=== PATIENT | female | born 1985 | race Asian ===

== ENCOUNTER 2023-04-10 20:45 | Inpatient (IN) ==
[2023-04-10] MEDS ORDERED: OXYTOCIN 30 UNITS/500 ML BAG IV PRN ×2 (21:31→21:36)
[2023-04-10] MEDS ORDERED: LIDOCAINE 1% LOCAL 20 ML VIAL INFIL PRN (21:31)
--- NOTE | 2023-04-10 21:54 | History & Physical Report ---
Date of Service April 10, 2023 Assessment & Plan (1) Elderly multigravida: Plan: Patient is a 37-year-old G2, P1 currently at 40 weeks 4 days gestational age with spontaneous rupture of membranes 1. Fetus: Category 1 tracing 2. Labor: Spontaneous rupture of membranes. Regular contractions we will continue to monitor for labor. 3. GBS: Negative 4. Vitals within normal limits (2) SROM (spontaneous rupture of membranes): History of Present Illness Primary Care Provider: NO PCP 37-year-old G2, P1 currently at 40 weeks 4 days gestational age presents with spontaneous rupture of membranes. Reporting contractions every 5 to 6 minutes. Good movement noted. complicated by advanced maternal age OB Labs: Blood Type O Positive 10/01/22 Antibody Screen NEGATIVE 10/01/22 Hemoglobin 10.5 g/dl (12.0-16.0) L 01/23/23 Hematocrit 30.8 % (37.0-47.0) L 01/23/23 Mean Corpuscular Volume 88.9 fL (80.0-100.0) 10/01/22 Platelet Count 282 K/uL (130-400) 10/01/22 Rubella IgG Antibody Non Immune (Immune) L 10/01/22 Rapid Plasma Reagin Nonreactive (Nonreactive) 10/01/22 Hepatitis B Surface Antigen. NON-REACTIVE (NON-REACTIVE) 10/01/22 Hepatitis C Antibody (EIA) NON-REACTIVE (NON-REACTIVE) 10/01/22 HIV (1&2) Ag and Ab Confirmation NON-REACTIVE (NON-REACTIVE) 10/01/22 Glucose 1 Hour 50 gm Load 167 mg/dl (70-130) H 10/22/22 Maternal Serum Alpha Fetoprotein 70.8 ng/mL 10/22/22 OB Optional Labs: Chlamydia trachomatis RNA Not Detected (NotDetected) 10/01/22 Neisseria gonorrhoeae RNA Not Detected (NotDetected) 10/01/22 Alpha Fetoprotein Triple Screen SEE NOTE 10/22/22 Labs Reviewed: cf/sma-negative--mln cfdna-low risk--mln Allergies Allergy/AdvReac Type Severity Reaction Status Date / Time No Known Allergies Allergy Verified 04/10/23 10:03 Home Medications Medication Instructions Recorded Confirmed Type L.stella schwarz,estuardo,rhamn 1 cap PO DAILY 09/16/22 04/10/23 History [Culturelle Probiotic] prenat.vits,tegan,wqn-jtcm-gbtno 1 tab PO DAILY 09/16/22 04/10/23 History ferrous sulfate 325 mg (65 mg 325 mg PO Q OTHER DAY 04/01/23 04/10/23 History iron) tablet (iron) Patient History Medical History (Updated 04/10/23 @ 21:52 by Sandro Pablo MD) Varicella vaccination Surgical History History of vitrectomy Family History Grandmother (Maternal) Diabetes Denies family history of Ovarian cancer Breast cancer Colorectal cancer Social History (Updated 09/16/22 @ 13:25 by Sienna Dubon) Smoking Status: Never smoker Do You Dip or Chew Tobacco: No; Hx Alcohol Use: No Hx Substance Use: No Preferred Language: Vincentian Oyster Shipper Required: No Beliefs That Will Affect Care: None marital status: marital status details: Michelle Lo (39) [phone] Current Living Situation: Spouse Current Living Situation Comment: lives with spouse, son, no pets current occupational status: employed 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[employer] Other Information That Helps Us Care for You: No Feels Safe at Home: Yes Safety Concerns: Feels Safe At This Time Assistive Devices: None Physical Exam Genitourinary: normal external appearance Manual OB Exam: + cervical dilation 1 cm, + cervical effacement 50%, + station -2 and + amniotic fluid (Positive pooling, ferning and nitrazine) bloody OB Exam Monitor Tracing: + external FHT monitor used, + external uterine monitor used, + category I and + normal FHT variability Results & Data Vital Signs (Past 12 Hours) Vital Signs Temp Pulse Resp BP 04/10/23 20:57 77 115/64 04/10/23 20:58 37.0 C 18 Coding Level of Care Code None Diagnoses Elderly multigravida O09.529 SROM (spontaneous rupture of membranes)
[2023-04-10 22:25] LABS: Hematocrit (blood only) 35.9 % (37.0-47.0); Hemoglobin 12.4 g/dl (12.0-16.0); Mean Corpuscular Hemoglobin 32.3 pg (25.0-34.0); Mean Corpuscular Hgb Conc 34.5 g/dL (32.0-36.0); Mean Corpuscular Volume 93.5 fL (80.0-100.0); Mean Platelet Volume 10.6 fL (9.4-12.4); Platelet Count 186 K/uL (130-400); RDW Coefficient of Variation 12.9 % (11.5-14.5); RDW Standard Deviation 43.9 fL (36.4-46.3); Red Blood Count 3.84 M/uL (4.20-5.40); White Blood Count 8.02 K/ul (4.8-10.8)
[2023-04-11] MEDS: LACTATED RINGER'S 1,000 ML IV PRN ×2 (02:21→03:29)
[2023-04-11] MEDS ORDERED: ePHEDrine sulfate 50 MG/ML AMP ONE (02:23)
[2023-04-11] MEDS ORDERED: SODIUM CHLORIDE 0.9% PF INJ 10 ML VIAL ONE (02:23)
[2023-04-11] MEDS ORDERED: LIDOCAINE 2%/EPINEPHRINE 1:200,000 20 ML PF ONE (02:23)
[2023-04-11] MEDS ORDERED: BUPIVACAINE 0.25% PF 30 ML VIAL ONE (02:23)
[2023-04-11] MEDS ORDERED: fentaNYL citrate PF 100 MCG/2 ML VIAL ONE (02:23)
[2023-04-11] MEDS ORDERED: fentaNYL 2MCG/ML ROPIVACAINE 1.25MG/ML 100 ML BAG EPI ONE (02:24)
[2023-04-11] MEDS ORDERED: fentaNYL 2MCG/ML ROPIVACAINE 1.25MG/ML 100 ML BAG EPI PRN (02:47)
[2023-04-11] MEDS ORDERED: NALOXONE HCL 0.4 MG/1 ML VIAL/CARP IV PRN (02:47)
[2023-04-11] MEDS ORDERED: BUPIVACAINE 0.25% PF 30 ML VIAL EPI PRN (02:47)
[2023-04-11] MEDS ORDERED: NALOXONE HCL 1 MG in SODIUM CHLORIDE 0.9% 1000ML 1,000 ML IV PRN (02:47)
[2023-04-11] MEDS ORDERED: LIDOCAINE 2% MPF LOCAL 5 ML VIAL EPI PRN (02:47)
[2023-04-11] MEDS ORDERED: diphenhydrAMINE 50 MG/ML VIAL IV PRN (02:47)
[2023-04-11] MEDS ORDERED: BUPIVACAINE 0.25% PF 30 ML VIAL EPI STA (02:47)
[2023-04-11] MEDS ORDERED: fentaNYL citrate PF 100 MCG/2 ML VIAL EPI STA (02:47)
[2023-04-11] MEDS ORDERED: SODIUM CHLORIDE 0.9% PF INJ 10 ML VIAL EPI STA (02:47)
[2023-04-11] MEDS ORDERED: LIDOCAINE 2%/EPINEPHRINE 1:200,000 20 ML PF EPI STA (02:47)
[2023-04-11] MEDS ORDERED: ePHEDrine sulfate 50 MG/ML AMP IV PRN (02:47)
[2023-04-11] MEDS ORDERED: fentaNYL citrate PF 100 MCG/2 ML VIAL EPI PRN (02:47)
[2023-04-11] MEDS ORDERED: ROPIVACAINE 0.5% PF 5 MG/ML 20 ML VIAL EPI PRN (02:47)
[2023-04-11] MEDS ORDERED: NALBUPHINE HCL INJ 10 MG/ML AMP IV PRN (02:47)
[2023-04-11] MEDS ORDERED: SODIUM CHLORIDE 0.9% PF INJ 10 ML VIAL EPI PRN (02:47)
[2023-04-11] MEDS ORDERED: ONDANSETRON INJ 2 MG/ML 2 ML VIAL IV PRN (02:47)
--- NOTE | 2023-04-11 02:48 | Anesthesiology Consultation ---
Date of Service April 11, 2023 Assessment & Plan Chart Review Chart Review: Patient NOT seen in Pre Admission Testing and Acceptable Risk for Labor Epidural Consults Requested none ASA ASA2 Proposed Anesthesia Anesthesia Type: Labor Epidural Risk / Benefits Reviewed With: PT / POA / Parent / Guardian, Accepts Plan and Informed Consent Obtained History Height/Weight Height: 5 ft 2.99 in Weight: 65.771 kg Allergies Allergy/AdvReac Type Severity Reaction Status Date / Time No Known Allergies Allergy Verified 04/10/23 10:03 Medications Home Medications Medication Instructions Recorded Confirmed Last Taken L.chong,ramonai,marte,rhamn 1 cap PO DAILY 09/16/22 04/10/23 04/10/23 09:00 [Culturelle Probiotic] prenat.vits,tegan,tca-lfcc-uzmzs 1 tab PO DAILY 09/16/22 04/10/23 04/10/23 09:00 ferrous sulfate 325 mg (65 mg 325 mg PO Q OTHER DAY 04/01/23 04/10/23 04/09/23 09:00 iron) tablet (iron) Active Medications Generic Name Dose Route Start Last Admin Trade Name Freq PRN Reason Stop Dose Admin Lactated Ringer's 1,000 mls @ 125 mls/hr 04/10/23 21:31 04/11/23 02:21 Lr IV 04/12/23 21:30 999 mls/hr .Q8H PRN Administration L&D Protocol Protocol Past Medical History Medical History (Updated 04/10/23 @ 21:52 by Sandro Pablo MD) Varicella vaccination Exercise / Class Metabolic Activity II 4-5 Yardwork/Stairs/Walk up hill Past Family History Family History Grandmother (Maternal) Diabetes Denies family history of Ovarian cancer Breast cancer Colorectal cancer Past Surgical History Surgical History History of vitrectomy Past Anesthesia History No Hx of Anesthesia Complications and No Family Hx of Anesthesia Complications History of PONV No Hx of PONV and No Hx of Motion Sickness Social History Smoking Status: Never smoker Do You Dip or Chew Tobacco: No Hx Alcohol Use: No Hx Substance Use: No Physical Exam Vital Signs Last Vital Signs Temp 37.0 C 04/11/23 02:01 Pulse 77 08/04/23 02:47 Resp 18 04/11/23 02:01 BP 103/59 L 04/11/23 00:15 Pulse Ox 100 04/11/23 02:47 ENMT Mouth: no dentition abnormality Thyromental Distance: > or= 3.5 Finger Breadths Mallampati Class: II Neck normal visual inspection Respiratory normal respiratory effort Auscultation: lungs clear to auscultation bilaterally Cardiovascular Rate/Rhythm: regular rate and regular rhythm Psychiatric Orientation: alert Testing Laboratory Results 04/10/23 21:46
[2023-04-11] MEDS ORDERED: HYDROCORTISONE ACETATE 25 MG SUPP PR PRN (05:56)
[2023-04-11] MEDS ORDERED: ACETAMINOPHEN 325 MG TAB PO PRN (05:56)
[2023-04-11] MEDS ORDERED: bisacodyL 10 MG SUPP PR PRN (05:56)
[2023-04-11] MEDS ORDERED: BENZOCAINE 20% SPRY 85 APPLN/85 GM CAN EXT PRN (05:56)
[2023-04-11] MEDS ORDERED: OXYTOCIN 30 UNITS/500 ML BAG IV PRN (05:56)
[2023-04-11] MEDS ORDERED: DIPHTHERIA/TETANUS/PERTUSSIS Vaccine (Tdap, Age 7+yrs) 0.5mL SYR/VL IM ONE (05:56)
--- NOTE | 2023-04-11 05:58 | Delivery Summary ---
Vaginal Delivery Summary Date of Service April 11, 2023 [facility] [place] Charge Procedure Intrapartal events: None Delivery monitor: external FHT and external uterine Route of delivery: Episiotomy description: None Laceration description: Perineal - 2nd Degree Delivery repair: vicryl Estimated blood loss (mL): 300 Anesthesia type: Epidural Complications: None Narrative: Patient progressed to 10 cm dilated 100% effaced +2 station pushed over an intact perineum with epidural anesthesia and delivered a viable with weight and Apgars pending. Had the delivered in ANAND position rest of the left transverse. No nuchal cord was noted. Body and shoulders quickly followed. was noted to be vigorous soon after delivery. cord blood obtained. Attention was then turned to delivery of the placenta which delivered intact three-vessel cord with gentle cord traction. On inspection of the perineum vagina and cervix was noted to be second-degree perineal laceration which was repaired with 3-0 Vicryl in traditional crown stitch. Needle sponge and instrument counts were correct at the completion of the case. Both mother and stable in the immediate postdelivery. Labor Stage Duration Labor - Stage 1 Duration: 4.90 Labor - Stage 2 Duration: 0.58 Labor - Stage 3 Duration: 19 Total Length of Labor: 5.80
[2023-04-11] MEDS: FERROUS SULFATE 325 MG TAB PO SCH (08:11)
[2023-04-11] MEDS: PRENATAL VITAMIN 1 TAB PO SCH (08:11)
[2023-04-11] MEDS: DOCUSATE SODIUM 100 MG CAP PO SCH ×2 (08:11→20:50)
--- NOTE | 2023-04-11 08:51 | Anesthesia Procedure Note ---
Date of Service April 11, 2023 Anesthesia Post Epidural Note Vital Signs Vital Signs: Temp Pulse Resp BP Pulse Ox 36.9 C 70 18 110/57 L 96 04/11/23 04:00 04/11/23 08:41 04/11/23 04:00 04/11/23 08:41 04/11/23 05:47 Pain Intensity Abdomen: Pain Intensity: 0 Notes Mental Status: alert / awake / arousable and participated in evaluation Patient Amnestic to Procedure: No Nausea / Vomiting: adequately controlled Pain: adequately controlled Airway Patency, RR, SpO2: stable & adequate BP & HR: stable & adequate Hydration State: stable & adequate Neuraxial Anesthesia: was administered and sensory block is resolving Anesthetic Complications: no major complications apparent and Pt Satisfied with anesthetic care Epidural: Removed without complications and With tip intact
[2023-04-11] MEDS: IBUPROFEN 600 MG TAB PO PRN ×2 (17:37→21:53)
[2023-04-12] MEDS: IBUPROFEN 600 MG TAB PO PRN ×3 (02:18→20:19)
--- NOTE | 2023-04-12 06:39 | Obstetrical Progress Note ---
Date of Service <Zara Salgado MD - Last Filed: 04/12/23 07:49> April 12, 2023 Assessment & Plan <Zara Salgado MD - Last Filed: 04/12/23 07:49> (1) Spontaneous vaginal delivery: Patient with the above mentioned history and findings was evaluated at bedside and found awake, alert, oriented in all spheres, afebrile, and in no acute distress. Overall, patient is doing well clinically. Therefore, will encourage ambulation as tolerated and will resume regular diet. Will continue monitoring pain levels and management with Motrin PRN. Will continue routine care. should she remain clinically and hemodynamically stable, will consider discharge tomorrow. All questions were answered. <Vania Benitez MD, FACOG - Last Filed: 04/12/23 08:47> (1) Spontaneous vaginal delivery: Subjective <Zara Salgado MD - Last Filed: 04/12/23 07:49> Joanie is a 37 y/o female who is now PPD # 1 following at 40 4/7 weeks. Reports feeling well overall this morning. Refers mild abdominal cramping & 4/10 pain well managed on analgesics. Voiding spontaneously. Tolerating meals overnight and able to ambulate some. She has not passed gas or had a bowel movement. Some persistent lochia with some improvement this morning. Currently . Her blood type is O positive with recent Hb at 12.4. She is GBS negative and Rubella not immune. She gave consent to receive this vaccine during her hospital stay. Constitutional: no fever, no chills or no sweats Denies shortness of breath or difficulty breathing Cardiovascular: no chest pain or no palpitations Breast: no breast pain Genitourinary (female): no dysuria Neurologic: no headache(s) Denies changes in vision Physical Exam <Zara Salgado MD - Last Filed: 04/12/23 07:49> General: Alert. Oriented to person, time, and place. Afebrile. No acute distress. Eyes: pupils equal and reactive to light bilaterally, extraocular movements intact. Cardiac: Regular rate and rhythm, no murmurs/rubs/gallops. Respiratory: Clear to auscultation bilaterally a/p, no wheezes/rales/rhonchi. No increased work of breathing. Symmetrical chest rise. No respiratory distress. Abdomen: Soft, nontender, nondistended. Bowel sounds present. Uterus: Uterine fundus firm, non-tender, and palpable below umbilicus. Lower Extremities: No lower extremity edema or swelling. No deep calf pain. Bernadette's negative bilaterally. Psych: Euthymic affect. Mood and affect congruence. Regular speech rate and content. Results & Data <Zara Salgado MD - Last Filed: 04/12/23 07:49> Vital Signs (Past 12 Hours) Vital Signs Temp Pulse Resp BP Pulse Ox O2 Del Method 04/11/23 23:50 36.7 C 67 18 107/66 98 Room Air 04/11/23 20:45 37 C 78 18 106/65 97 Room Air <Vania Benitez MD, FACOG - Last Filed: 04/12/23 08:47> Co-Signing Physician Notes Resident Physician Supervision Note: I interviewed and examined the patient. Discussed with Dr. Salgado and agree with findings and plan as documented in the note. Any exceptions or clarifications are listed here: [None] Documented By: Vania Benitez MD, FACOG Resident Activity Tracking <Zara Salgado MD - Last Filed: 04/12/23 07:49> Resident Involvement: Resident Care Provided Care Provided: OB Delivery
[2023-04-12] MEDS: FERROUS SULFATE 325 MG TAB PO SCH (10:02)
[2023-04-12] MEDS: DOCUSATE SODIUM 100 MG CAP PO SCH ×2 (10:02→20:19)
[2023-04-12] MEDS: PRENATAL VITAMIN 1 TAB PO SCH (10:02)
[2023-04-12] MEDS ORDERED: MEASLES, MUMPS & RUBELLA VIRUS VIAL SQ ONE (10:34)
[2023-04-12] MEDS ORDERED: bisacodyL 5 MG TABEC PO SCH (20:00)
--- NOTE | 2023-04-13 07:37 | Obstetrical Progress Note ---
Date of Service April 13, 2023 Assessment & Plan (1) Spontaneous vaginal delivery: day #2 patient meets discharge criteria she has no extremity pain she has no depression and her bleeding is minimal she will go home today Subjective Ambulation: ambulating normally Voiding: no voiding problems Passing Gas:: Yes Diet Tolerance:: regular diet Lochia:: Small Results & Data Vital Signs (Past 12 Hours) Vital Signs Temp Pulse Resp BP Pulse Ox O2 Del Method 04/12/23 23:30 98.2 F 60 18 109/67 96 Room Air 04/12/23 20:14 98.2 F 70 18 105/65 97 Room Air
[2023-04-13] MEDS: DOCUSATE SODIUM 100 MG CAP PO SCH (09:48)
[2023-04-13] MEDS: IBUPROFEN 600 MG TAB PO PRN (09:48)
[2023-04-13] MEDS: PRENATAL VITAMIN 1 TAB PO SCH (09:48)
[2023-04-13] MEDS: FERROUS SULFATE 325 MG TAB PO SCH (09:48)
== END 2023-04-13 12:05 | disposition home or self-care (01) | DRG 807 ==
LOC: OPB 20:45 → 4S1 20:46 → 4E2 04-11 09:28